=== PATIENT | female | born 1945 | race Two or more races ===

== ENCOUNTER 2017-10-13 10:03 | Outpatient (CLI) | payer OTHER ==
[~2017-10-13 10:03] MED LIST: AMBIEN5 MG PO; HYZAAR 100-121 UDTAB PO; ORPH100T PO; TIZANIDINE HCL2 MG PO
== END 2017-10-13 10:10 | disposition home or self-care (01) ==
LOC: RAD 10:03
DX: M19.041 Primary osteoarthritis, right hand (principal); M19.042 Primary osteoarthritis, left hand; M17.12 Unilateral primary osteoarthritis, left knee; M47.817 Spondylosis without myelopathy or radiculopathy, lumbosacral region

== ENCOUNTER 2017-10-26 08:06 | Outpatient (CLI) | payer OTHER | END 2017-10-26 17:00 | disposition home or self-care (01) | LOC: SONOGRAMA 08:06 | DX: M12.822 Other specific arthropathies, not elsewhere classified, left elbow (principal); M19.012 Primary osteoarthritis, left shoulder ==

== ENCOUNTER → 2018-03-27 07:11 | Outpatient (CLI) | payer OTHER ==
[~2018-03-27 07:11] MED LIST changes: +VOLTAREN100 GM [1,]
== END | disposition home or self-care (01) ==
LOC: RAD 07:11
DX: Z01.810 Encounter for preprocedural cardiovascular examination (principal); R15.2 Fecal urgency; N81.6 Rectocele

== ENCOUNTER 2018-03-29 07:54 | Outpatient (CLI) | payer OTHER | END 2018-03-29 08:09 | disposition home or self-care (01) | LOC: EKG 07:54 | DX: Z01.810 Encounter for preprocedural cardiovascular examination (principal); N81.6 Rectocele; R15.2 Fecal urgency; R15.9 Full incontinence of feces; R19.7 Diarrhea, unspecified; Z12.11 Encounter for screening for malignant neoplasm of colon; Z80.0 Family history of malignant neoplasm of digestive organs ==

== ENCOUNTER 2018-04-18 07:00 | Day surgery (SDC) | payer OTHER ==
[~2018-04-18] VITALS: Ht 162.6 cm; Wt 73.5 kg
[~2018-04-18 07:00] MED LIST changes: +IMODIUM A-D2 M2 PO
[2018-04-19] MEDS ORDERED: PERCOCET 5-3251 EACH PO (11:49)
[2018-04-19] MEDS ORDERED: RECTICARE30 GM TOP (11:49)
== END 2018-04-19 08:00 | disposition home or self-care (01) ==
LOC: CIR.AMB 07:00 → SURG 08:08 → O/R 08:08 → SURH 08:08 → SURG 08:15 → EDSTATUS 08:15 → SURG 11:30 → SURH 18:15 → O/R 18:15 → SURH 21:29 → CIR.AMB 04-19 08:00 → O/R 04-19 13:51 → SURH 04-19 13:51
DX: N81.6 Rectocele (principal); K57.32 Diverticulitis of large intestine without perforation or abscess without bleeding; M75.21 Bicipital tendinitis, right shoulder; R15.9 Full incontinence of feces; N81.89 Other female genital prolapse; K57.30 Diverticulosis of large intestine without perforation or abscess without bleeding; M77.12 Lateral epicondylitis, left elbow; R15.2 Fecal urgency; M65.4 Radial styloid tenosynovitis [de Quervain]; D12.8 Benign neoplasm of rectum; S60.212D Contusion of left wrist, subsequent encounter; M79.632 Pain in left forearm

== ENCOUNTER 2020-12-17 10:07 | Outpatient (CLI) | payer OTHER ==
[~2020-12-17 10:07] MED LIST changes: +PERCOCET 5-3251 EACH PO; +RECTICARE30 GM TOP; -VOLTAREN100 GM [1,]; +VOLTAREN100 GM {1, null}
== END 2020-12-17 10:29 | disposition home or self-care (01) ==
LOC: RAD 10:07
PROVIDERS: ATTEND Specialist
DX: M72.2 Plantar fascial fibromatosis (principal); M19.071 Primary osteoarthritis, right ankle and foot; M19.072 Primary osteoarthritis, left ankle and foot; M05.79 Rheumatoid arthritis with rheumatoid factor of multiple sites without organ or systems involvement; M19.041 Primary osteoarthritis, right hand

== ENCOUNTER 2021-07-08 07:57 | Outpatient (CLI) | payer OTHER | END 2021-07-08 15:12 | disposition home or self-care (01) | LOC: EKG 07:57 → LAB 07:57 | PROVIDERS: ATTEND Internal Medicine Cardiovascular Disease | DX: I10 Essential (primary) hypertension (principal); Z01.818 Encounter for other preprocedural examination ==

== ENCOUNTER 2022-02-03 08:36 | Outpatient (CLI) | payer OTHER | END 2022-02-03 08:42 | disposition home or self-care (01) | LOC: RAD 08:36 | PROVIDERS: ATTEND Internal Medicine Cardiovascular Disease | DX: M12.9 Arthropathy, unspecified (principal) ==

== ENCOUNTER 2022-04-12 06:17 | Day surgery (SDC) | payer OTHER ==
[~2022-04-12 06:17] MED LIST changes: +CLARITIN PO; +LOSARTAN-HCTZ1 EACH PO; +TUSSIN100 MG/51 PO
== END 2022-04-12 15:00 | disposition home or self-care (01) ==
LOC: CIR.AMB 06:17
PROVIDERS: ATTEND Orthopaedic Surgery Hand Surgery
DX: M18.11 Unilateral primary osteoarthritis of first carpometacarpal joint, right hand (principal); Z20.822 Contact with and (suspected) exposure to COVID-19; Z88.6 Allergy status to analgesic agent; Z88.0 Allergy status to penicillin; I10 Essential (primary) hypertension; J45.909 Unspecified asthma, uncomplicated; Z86.16 Personal history of COVID-19; R73.03 Prediabetes

== ENCOUNTER 2022-06-15 08:37 | Outpatient (CLI) | payer OTHER | END 2022-06-15 08:50 | disposition home or self-care (01) | LOC: MAMO-SONO 08:37 | PROVIDERS: ATTEND Internal Medicine Cardiovascular Disease | DX: Z12.31 Encounter for screening mammogram for malignant neoplasm of breast (principal); N63.11 Unspecified lump in the right breast, upper outer quadrant ==

== ENCOUNTER 2023-11-02 07:17 | Outpatient (CLI) | payer OTHER | END 2023-11-02 07:20 | disposition home or self-care (01) | LOC: TOM 07:17 | PROVIDERS: ATTEND Internal Medicine Gastroenterology | DX: R63.4 Abnormal weight loss (principal) ==

== ENCOUNTER 2023-12-14 07:32 | Outpatient (CLI) | payer OTHER | END 2023-12-14 07:42 | disposition home or self-care (01) | LOC: MAMO-SONO 07:32 | PROVIDERS: ATTEND Internal Medicine Hematology & Oncology | DX: N64.4 Mastodynia (principal); Z80.3 Family history of malignant neoplasm of breast ==

== ENCOUNTER 2024-01-02 12:03 | Outpatient (CLI) | payer OTHER | END 2024-01-02 12:06 | disposition home or self-care (01) | LOC: SONOGRAMA 12:03 | PROVIDERS: ATTEND Obstetrics & Gynecology | DX: D25.9 Leiomyoma of uterus, unspecified (principal) ==

== ENCOUNTER 2024-12-13 07:43 | Outpatient (CLI) | payer OTHER | END 2024-12-13 07:47 | disposition home or self-care (01) | LOC: MAMO-SONO 07:43 | PROVIDERS: ATTEND Internal Medicine Hematology & Oncology | DX: N64.4 Mastodynia (principal); N63.0 Unspecified lump in unspecified breast; Z80.3 Family history of malignant neoplasm of breast; D51.3 Other dietary vitamin B12 deficiency anemia; D50.8 Other iron deficiency anemias; D53.9 Nutritional anemia, unspecified; D53.0 Protein deficiency anemia; I10 Essential (primary) hypertension; K57.30 Diverticulosis of large intestine without perforation or abscess without bleeding; B15.9 Hepatitis A without hepatic coma; Z12.31 Encounter for screening mammogram for malignant neoplasm of breast ==

== ENCOUNTER 2025-03-05 07:05 | Outpatient (CLI) | payer OTHER | END 2025-03-05 07:06 | disposition home or self-care (01) | LOC: NUCLEAR 07:05 | PROVIDERS: ATTEND Orthopaedic Surgery | DX: T84.032A Mechanical loosening of internal right knee prosthetic joint, initial encounter (principal) | CPT/HCPCS: 78315; A9503 ==

== ENCOUNTER 2025-04-30 07:00 | Inpatient (IN) | payer OTHER ==
[~2025-04-30] VITALS: Ht 152.4 cm; Wt 73.9 kg
[2025-04-30 07:38] VITALS: BP 180/80
[2025-04-30 07:38] LABS: BASO % 0.5 % (0.1-1.2); EOS # 0.17 (0.04-0.54); EOS % 2.2 % (0.7-7.0); LYMPH # 1.52 (1.18-3.74); LYMPH % 20.1 % (19.3-53.1); MEAN PLATELET VOLUME 8.80 fl (9.4-12.4); MONO # 0.51 (0.24-0.82); MONO % 6.7 % (4.7-12.5); NEUT # 5.32 (1.56-6.13); NEUT % 70.2 % (34.0-71.1); RED CELL DISTRIBUTION WIDTH 14.5 % (11.6-14.4)
[2025-04-30] MEDS ORDERED: HYZAAR 100-12.1 EACH PO (07:52)
[2025-04-30] MEDS ORDERED: MAGNESIUM400 MG PO (07:53)
[2025-04-30] MEDS ORDERED: REFRESH PLUS1 EACH OP (07:53)
[2025-04-30] MEDS ORDERED: SYSTANE BALANCE10 ML (07:54)
[2025-04-30] MEDS ORDERED: VITAMINAS (07:55)
[2025-04-30 07:58] LABS: URINE APPEARANCE Clear; URINE BILIRRUBIN Negative (NEGATIVE); URINE BLOOD Negative; URINE COLOR Yellow; URINE GLUCOSE Negative (NEGATIVE); URINE KETONE Negative (NEGATIVE); URINE LEUKOCYTE Negative; URINE NITRATE Negative; URINE PROTEIN Negative (NEGATIVE); URINE UROBILINOGEN 0.2 E.U./dl
[2025-04-30 08:02] LABS: URINE RBC 10.2 uL (0.0-20.8); URINE WBC 1.8 uL (0.0-23.2)
[2025-04-30 08:03] LABS: URINE BACTERIA 3.5 uL (0.0-1933); URINE CAST 0.00 uL (0.0-1.40); URINE EPITHELIAL CELLS 1.3 uL (0.0-38.8)
[2025-04-30 08:07] LABS: INR 0.94
[2025-04-30 08:11] LABS: COVID-19 AG NEGATIVE (NEGATIVE)
[2025-04-30 08:27] LABS: ALT/SGPT 24.0 U/L (12-78); AST/SGOT 21.0 U/L (15-37); BILIRUBIN TOTAL 0.43 mg/dL (0.3-1.2); BUN CREA RATIO 28.0 (7.0-25.0); CHOL HDL RATIO 1.9 (0-5.0); CREATININE SERUM 0.61 mg/dL (0.55-1.02); GFR 95.1; GLOBULINA 3.1 G/DL (2.4-3.5); GLUCOSE FASTING 87.0 mg/dL (65-100); HDL 106.0 mg/dl (40-60); LDL 82.0 mg/dl (0-130); OSMOLALITY SERUM 282.0 MOSM/KG (275-295); VLDL 18.0 (0-39)
[2025-04-30 09:13] LABS: RH POSITIVE
[2025-05-06] MEDS ORDERED: BUPIVACAINE HCL 30 ML VIAL IJ ONE (09:00)
[2025-05-06] MEDS ORDERED: TRANEXAMIC ACID 100MG/1ML (1000MG) AMPUL IV ONE ×2 (09:00)
[2025-05-06] MEDS ORDERED: LIDOCAINE HCL 1%/EPINEPHRINE 20ML VIAL IJ ONE (09:00)
[2025-05-06] MEDS ORDERED: VANCOMYCIN HCL 1,000 MG VIAL IR ONE (09:00)
[2025-05-06] MEDS ORDERED: VANCOMYCIN HCL 1,000 MG VIAL IV ONE (10:30)
[2025-05-06] MEDS ORDERED: MORPHINE SULFATE 4 MG/ML CARTRIDGE IV PRN (16:00)
[2025-05-06] MEDS ORDERED: SODIUM CHLORIDE 0.45 % 1,000 ML IV SCH (16:00)
[2025-05-06] MEDS ORDERED: TRAMADOL HCL 50 MG TABLET PO PRN (16:30)
[2025-05-06] MEDS ORDERED: GABAPENTIN 300 MG CAPSULE PO SCH (17:00)
[2025-05-06] MEDS ORDERED: GABAPENTIN 300 MG CAPSULE PO ONE (17:05)
[2025-05-06] MEDS ORDERED: ACETAMINOPHEN 500 MG GEL..CAP PO ONE (17:15)
[2025-05-06 17:45] VITALS: BP 169/72; BP 172/72; O2SAT 99
[2025-05-06] MEDS ORDERED: ACETAMINOPHEN 500 MG GEL..CAP PO SCH (18:00)
[2025-05-06] MEDS ORDERED: VANCOMYCIN HCL 1,000 MG in 0.9 % SODIUM CHLORIDE 250 ML IV SCH (21:00)
[2025-05-07 01:54] VITALS: BP 110/71; O2SAT 99
[2025-05-07 06:40] LABS: BASO % 0.2 % (0.1-1.2); EOS # 0.10 (0.04-0.54); EOS % 1.0 % (0.7-7.0); LYMPH # 1.46 (1.18-3.74); LYMPH % 14.8 % (19.3-53.1); MEAN PLATELET VOLUME 9.00 fl (9.4-12.4); MONO # 1.09 (0.24-0.82); MONO % 11.0 % (4.7-12.5); NEUT # 7.17 (1.56-6.13); NEUT % 72.6 % (34.0-71.1); RED CELL DISTRIBUTION WIDTH 14.4 % (11.6-14.4)
[2025-05-07] MEDS ORDERED: ELIQUIS2.5 MG PO (08:14)
[2025-05-07] MEDS ORDERED: CIPRO500 MG PO (08:14)
[2025-05-07 08:28] VITALS: BP 159/63; O2SAT 98
[2025-05-07] MEDS ORDERED: VANCOMYCIN HCL 1,000 MG VIAL IV SCH (09:00)
[2025-05-07] MEDS ORDERED: APIXABAN 2.5 MG TABLET PO SCH (09:00)
[2025-05-07] MEDS ORDERED: SENNOSIDES 1 TAB TABLET PO SCH (09:00)
[2025-05-07] MEDS ORDERED: LOSARTAN/HYDROCHLOROTHIAZIDE 1 TAB TABLET PO SCH (09:00)
[2025-05-07] MEDS ORDERED: VANCOMYCIN HCL 1,000 MG VIAL ONE ×3 (10:08→16:14)
[2025-05-07] MEDS ORDERED: Cyanocobalamin/Mecobalamin 1 TAB.SL SL NR (11:30)
[2025-05-07] MEDS ORDERED: SOD FERRIC GLUC COMPLX/SUCROSE 62.5 MG/5 ML AMPUL IV SCH (12:00)
[2025-05-07 17:46] VITALS: BP 186/70; O2SAT 98
[2025-05-08 01:12] VITALS: BP 132/62; O2SAT 98
[2025-05-08] MEDS ORDERED: VANCOMYCIN HCL 1,000 MG VIAL ONE ×2 (07:40→16:27)
[2025-05-08 08:45] VITALS: BP 157/64; O2SAT 95
[2025-05-08] MEDS ORDERED: Cyanocobalamin/Mecobalamin 1 TAB.SL SL SCH (09:00)
[2025-05-08] MEDS ORDERED: IRON FUM,PS/FOLIC ACID/VITC/B3 1 CAP CAPSULE PO SCH (09:00)
[2025-05-08 11:16] LABS: BASO % 0.3 % (0.1-1.2); EOS # 0.10 (0.04-0.54); EOS % 0.8 % (0.7-7.0); LYMPH # 1.13 (1.18-3.74); LYMPH % 9.4 % (19.3-53.1); MEAN PLATELET VOLUME 9.10 fl (9.4-12.4); MONO # 0.98 (0.24-0.82); MONO % 8.1 % (4.7-12.5); NEUT # 9.73 (1.56-6.13); NEUT % 80.7 % (34.0-71.1); RED CELL DISTRIBUTION WIDTH 13.9 % (11.6-14.4)
[2025-05-08 16:10] VITALS: BP 156/71; O2SAT 97
[2025-05-09 01:59] VITALS: BP 156/63; O2SAT 99
[2025-05-09] MEDS ORDERED: VANCOMYCIN HCL 1,000 MG VIAL ONE (06:35)
[2025-05-09 08:00] VITALS: BP 127/57; O2SAT 96
== END 2025-05-09 14:01 | DRG 467 ==
LOC: SURH 05-06 07:00 → O/R 05-06 08:21 → SURH 05-06 13:30 → SURG 05-06 15:45 → O/R 05-07 10:21 → SURG 05-07 10:23
PROVIDERS: ADMIT Orthopaedic Surgery; ATTEND Orthopaedic Surgery
PROC: 0QUF0KZ Supplement Left Patella with Nonautologous Tissue Substitute, Open Approach (ICD-10-PCS; 2025-05-06)
PROC: 0QU Lower Bones, Supplement (ICD-10-PCS; 2025-05-06)
PROC: 0SND0ZZ Release Left Knee Joint, Open Approach (ICD-10-PCS; 2025-05-06)
PROC: 0SWD0JZ Revision of Synthetic Substitute in Left Knee Joint, Open Approach (ICD-10-PCS; principal; 2025-05-06 13:30)
PROC: 30233N1 Transfusion of Nonautologous Red Blood Cells into Peripheral Vein, Percutaneous Approach (ICD-10-PCS; 2025-05-07)
DX: T84.032A Mechanical loosening of internal right knee prosthetic joint, initial encounter (principal); D62 Acute posthemorrhagic anemia; M17.11 Unilateral primary osteoarthritis, right knee